=== PATIENT | male | born 1970 | race Caucasian/White ===

== ENCOUNTER → 2021-12-12 13:24 | Outpatient (BNVA) | payer BC, SELFPAY | PROVIDERS: PCP Nurse Practitioner Family; Referring Provider Nurse Practitioner Family; Visit Provider Urology | DX: Z12.5 Encounter for screening for malignant neoplasm of prostate (principal); E34.9 Endocrine disorder, unspecified; R79.89 Other specified abnormal findings of blood chemistry | CPT/HCPCS: 81003; 83001; 83002; 84146; 84403; G0103 ==

== ENCOUNTER 2022-02-19 16:31 | Emergency (ER) | payer OTHER, SELFPAY ==
[2022-02-19 16:48] VITALS: BP 164/90; PULSE 83; RESP 16; TEMP 36.9; O2SAT 95; BMI 33.5
--- NOTE | 2022-02-19 17:08 | XRR_ITS ---
PROCEDURE INFORMATION: Exam: XR Left Hand Exam date and time: 02/19/2022 4:28 PM Age: 52 years old Clinical indication: Injury or trauma; Other: Screwdriver went into hand between the head of the 2nd and 3rd metacarpal; Puncture; Left; Additional info: Puncture wound TECHNIQUE: Imaging protocol: XR Left hand. Views: 3 or more views. COMPARISON: No relevant prior studies available. FINDINGS: Bones/joints: Normal. Soft tissues: Normal. XR/XR hand LT min 3V* [id number] IMPRESSION: No acute findings.
--- NOTE | 2022-02-19 17:10 | W.ED.EXTPRO ---
HPI - Extremity Problem General: Chief complaint: Extremity Injury, Upper Stated complaint: Stuck a screwdriver in his left hand Time Seen by Provider: 02/19/22 17:06 History of Present Illness: 52-year-old male comes in for injury to the left hand. Patient had been working and a screwdriver slipped stabbing in between the second and third digit of the left hand. Patient does not recall his last tetanus. Patient appears well. Patient was concerned for foreign body. Associated symptoms: Deny chest pain Review of Systems General: Reports: 10 or more systems reviewed and unremarkable except in HPI and below Card: Denies: chest pain Resp: Denies: dyspnea Musc: Reports: extremity pain Skin/Breast: Reports: new lesions (Puncture wound left hand) PFS ED PFSH: Medical History Testosterone deficiency Family History Mother , in her 60's Cancer esophageal Father PTSD (post-traumatic stress disorder) Social History Smoking and tobacco status: never smoked Alcohol intake: never Marital status: Current occupational status: employed History of recent travel: No Physical Exam Const: COMMON NORMALS: alert Neck/C-Spine: COMMON NORMALS: full ROM Resp: COMMON NORMALS: normal respiratory effort Cardio: COMMON NORMALS: regular rate and regular rhythm RATE: regular rate RHYTHM: regular rhythm Extremity: COMMON NORMALS: no pedal edema LEFT UPPER EXTREMITY: Yes hand & digits (Puncture wound between second and third digit, superficial) Left hand and digits: Yes inspection, Yes palpation, Yes ROM (Normal range of motion), Yes neurovascular exam and Yes tendon exam (Normal tendon function) Neuro: SENSORIUM/ORIENTATION: Yes alert Psych: COMMON NORMALS: cooperative Skin: TRAUMA: puncture (Left hand between second and third digit) Course Vital Signs: Vital signs: Vital Signs Temperature 98.4 F 02/19/22 16:48 Pulse Rate 83 02/19/22 16:48 Respiratory Rate 16 02/19/22 16:48 Blood Pressure 164/90 02/19/22 16:48 Pulse Oximetry 95 02/19/22 16:48 MDM - Extremity (Nontraumatic) Medical Decision Making Patient comes in for evaluation of injury to the left hand. On exam there is a puncture wound between the second and third digit. Patient has normal tendon function. Superficial puncture wound is noted. Differential diagnosis includes need for prophylaxis tetanus, need for prophylaxis antibiotic, puncture wound, foreign body. X-ray noted no foreign body or bony injury. Reviewed exam with patient wound was cleaned with Betadine and water. And soaked for prolonged period patient be started on antibiotic and maintain for 7 days. Reported recommendations for follow-up or return to the ER. Patient stated understanding. Discharge Plan Discharge Patient Disposition: Home Clinical Impression: Puncture wound of hand Qualifiers: Encounter type: initial encounter Foreign body presence: without foreign body Laterality: left Qualified Code(s): S61.432A - Puncture wound without foreign body of left hand, initial encounter Condition: Stable Prescriptions: New amoxicillin-pot clavulanate 875-125 mg tablet 1 tab PO BID Qty: 14 0RF No Action bupropion HCl [Wellbutrin SR] 150 mg tablet sustained-release 12 hr 150 mg PO DAILY 0RF diclofenac potassium 50 mg tablet 50 mg PO BID 0RF lisinopril 5 mg tablet 5 mg PO BID 0RF escitalopram oxalate 20 mg tablet 20 mg PO DAILY 0RF testosterone cypionate 200 mg/mL kit 200 mg IM .every other week Qty: 10 5RF (DME) Syringe 3cc/22Gx1 3 mL 22 gauge x 1 syringe miscellaneous Qty: 100 3RF Rx Instructions: testosterone deficiency Discharge Orders: Discharge ED (Routine); Ordered 02/19/22 Ordered By: Reginaldo Neal Referrals: Scarlet Jones FNP [Primary Care Provider] - Discharge Diet: Usual diet Discharge Activity: Increase activity as tolerated Patient Instructions: Puncture Wound (ED) Activity Restrictions/Additional Instructions: Activity as tolerated. Use acetaminophen and ibuprofen for pain. Take antibiotics as directed twice a day for the next 7 days. Monitor site for increasing redness and swelling. Return to the ER as needed. Follow-up with primary care in 3 days for recheck. Coding Level of Care Code ED Director Sales Training for Cate Lee
[2022-02-19] MEDS: amoxicillin-clav 875-125 mg Tablet 1 TAB PO (17:53)
[2022-02-19] MEDS: tetanus-dipt-pertussis 0.5 mL SDV IM (17:53)
== END 2022-02-19 18:23 | disposition home or self-care (01) ==
PROVIDERS: Emergency Provider Nurse Practitioner Family; PCP Nurse Practitioner Family
DX: S61.432A Puncture wound without foreign body of left hand, initial encounter (principal); W27.0XXA Contact with workbench tool, initial encounter; Z23 Encounter for immunization
CPT/HCPCS: 73130; 90471; 90715; 99283

== ENCOUNTER 2022-05-15 06:15 | Day surgery (SDC) | payer BC, SELFPAY ==
[2022-05-14 12:35] VITALS: BMI 33.3
[2022-05-15 06:38] VITALS: BP 140/90; PULSE 69; RESP 18; TEMP 36.3; O2SAT 97
--- NOTE | 2022-05-15 06:53 | ANES.PREANE2 ---
Pre-Anesthetic Assessment Height/Weight: Height 1.85 m Weight 114.759 kg Temp Pulse Resp BP Pulse Ox 97.3 F L 69 18 140/90 97 05/15/22 06:38 05/15/22 06:38 05/15/22 06:38 05/15/22 06:38 05/15/22 06:38 Preop Diagnosis: Trigger finger Left thumb Operation Date: 05/15/22 07:00 Proposed Procedures p left thumb trigger release 04428/m65.312(Left) - Edilson Baez MD Familial anesthetic complications: Postop urinary retention - ? glycopyrrolate effect Was Beta Eloina taken within 24 hours: N/A Was Clonidine taken within 24 hours: N/A Last intake: Intake Last Liquid Date 05/14/22 Last Liquid Time 22:00 Last Solid Date 05/14/22 Last Solid Time 20:30 Social No alcohol and No tobacco Exam alert, oriented x 3, clear to auscultation bilaterally and regular rate & rhythm Airway Mallampati: Class IV Dentition: chipped (multiple broken) Pulmonary None reported CV/HEM Hypertension None reported Hepatic None reported GI None reported Metabolic None reported Musc/skel None reported Neuropsych None reported Anesthetic Plan ASA status: 2 Anesthesia: MAC and Regional (specify below) (althea block) Risk of > 500 ml blood loss (7ml/kg in children): No Medications/Allergies Home Medications Medication Instructions Recorded Confirmed Last Taken Type diclofenac potassium 50 mg tablet 50 mg PO BID 12/12/21 05/14/22 Unknown History escitalopram oxalate 20 mg tablet 20 mg PO DAILY 12/12/21 05/15/22 05/14/22 History lisinopril 5 mg tablet 5 mg PO BID 12/12/21 05/15/22 05/14/22 History syringe with needle 3 mL 22 gauge #100 ea 12/12/21 04/29/22 Unknown Rx x 1 (Syringe) testosterone cypionate 200 mg/mL 200 mg IM .every other week #10 ea 12/12/21 05/14/22 Unknown Rx intramuscular kit Allergies Allergy/AdvReac Type Severity Reaction Status Date / Time Sulfa (Sulfonamide Allergy ALGY-Rash Verified 02/19/22 16:48 Antibiotics) sulfamethoxazole Allergy Abdominal Verified 12/12/21 13:17 [From Bactrim] pain, rash, intolerance trimethoprim [From Bactrim] Allergy Abdominal Verified 12/12/21 13:17 pain, rash, intolerance PFSH Anesthesia Medical History Testosterone deficiency Family History Mother , in her 60's Cancer esophageal Father PTSD (post-traumatic stress disorder) Social History Smoking and tobacco status: never smoked Alcohol intake: never Marital status: Current occupational status: employed History of recent travel: No Data Anesthesia Cardiac Studies: No Data to Display
--- NOTE | 2022-05-15 06:54 | W.PM.OPSUD ---
Surgery/Procedure H&P Update DATE OF PROCEDURE: May 15, 2022 DATE H&P PERFORMED: 04/29/22 H&P UPDATE INFORMATION: I have reviewed H&P completed within last 30 days PREOP DIAGNOSIS: Trigger finger Left thumb PLANNED PROCEDURE: Operation Date: 05/15/22 07:00 Proposed Procedures p left thumb trigger release [id number]/m65.312(Left) - Edilson Baez MD
[2022-05-15] MEDS: sodium chloride 0.9% 1,000 ML 30 ML IV (06:58)
--- NOTE | 2022-05-15 07:54 | P.OP_ITS ---
Operative Report Date of procedure: May 15, 2022 Pre-op diagnosis: Preop Diagnosis Trigger finger Left thumb Post-op diagnosis: same Procedure done: Left trigger thumb release Surgeon: Edilson Baez Estimated blood loss (mL): 2 Tourniquet time (min): 20 Findings: The patient was noted to have some degenerative small flaps and fissures over the superficialis tendon to the left thumb Condition: stable Disposition: PACU Procedure: The patient's hand was prepped in the usual fashion. A timeout was performed. I transverse incision was made over the level of a 1 alejandro in the palm over a distance of approximately a centimeter and a half. Under loupe magnification blunt dissection was accomplished down to the A1 alejandro. With adequate visualization a scalpel was used to divide the central 8 mm of that structure. Blunt scissors were then used to extend the release approximately 5 mm prox imally and 5 mm distally. Tendons were pulled the road and inspected to assure there health. Skin edges were infiltrated with 4 cc of 0.5%n Marcaine. The skin edges were closed with 3-0 Prolene compressive dressings were applied.
[2022-05-15 07:57] VITALS: BP 138/87; PULSE 75; RESP 20; TEMP 36.4; O2SAT 93
[2022-05-15 08:00] VITALS: BP 138/87; PULSE 75; RESP 16; O2SAT 94
[2022-05-15 08:05] VITALS: BP 138/88; PULSE 70; RESP 18; TEMP 36.2; O2SAT 96
[2022-05-15 08:10] VITALS: BP 142/102; PULSE 70; RESP 18; TEMP 36.3; O2SAT 96
[2022-05-15 08:20] VITALS: BP 121/72; PULSE 66; RESP 18; TEMP 36.2; O2SAT 97
[2022-05-15] MEDS: HYDROcodone-acetaminophen 5-325 mg Tablet 1 TAB PO (08:44)
--- NOTE | 2022-05-15 16:34 | ANE.PACU2 ---
Inpatient post-anesthesia follow up: Airway intact: Yes Vital signs: Temperature 97.1 F Pulse Rate 66 Respiratory Rate 18 Blood Pressure 121/72 Pulse Oximetry 97 Oxygen Delivery Me thod Room Air Oxygen Flow Rate Fraction of Inspir ed Oxygen Hydration adequate: Yes Nausea and vomiting: Yes Pain level: 1 Mental status: Baseline
== END 2022-05-15 08:55 | disposition home or self-care (01) ==
PROVIDERS: PCP Nurse Practitioner Family; Visit Provider Orthopaedic Surgery
PROC: (CPT 26055; principal; 2022-05-15 07:00)
DX: M65.312 Trigger thumb, left thumb (principal)
CPT/HCPCS: 26055; J2250; J2704; J3490; J7030

== ENCOUNTER → 2022-05-30 09:11 | Outpatient (BNVA) | payer BC, SELFPAY | PROVIDERS: PCP Nurse Practitioner Family; Visit Provider Nurse Practitioner Family | DX: M65.312 Trigger thumb, left thumb (principal); M19.042 Primary osteoarthritis, left hand | CPT/HCPCS: 73130 ==